=== PATIENT | female | born 1935 | race Asian ===

== ENCOUNTER 2020-08-01 20:59 | Emergency (ER) | payer OTHER, SELFPAY ==
[~2020-08-01] VITALS: Ht 157.5 cm; Wt 81.6 kg
[2020-08-01 21:42] VITALS: BP_SYST 186
--- NOTE | 2020-08-01 21:42 | NUR ---
Placed in room 4 . Placed on rn pacu, blood pressure machine and pulse oximeter. To gown for exam. Side rails up.
--- NOTE | 2020-08-01 21:44 | NUR ---
ER at bedside examining patient.
--- NOTE | 2020-08-01 21:46 | NUR ---
Pt presents to the ER for medical clearance to [facility]. Pt is hyperverbal and yelling to medical staff at [facility]. Pt is cooperative but agitated. Last COVID test done 07/19/20, negative. Denies COVID symptoms.
[2020-08-01 22:11] LABS: BASOPHILS % (AUTO) 0.4 % (0.0-2.0); EOSINOPHILS # (AUTO) 0.1 K/uL (0.0-0.4); EOSINOPHILS % (AUTO) 1.1 % (0.0-4.0); HEMATOCRIT 41.5 % (36-48); HEMOGLOBIN 13.7 g/dL (12.0-16.0); LYMPHOCYTES # (AUTO) 1.6 K/uL (1.0-5.5); LYMPHOCYTES % (AUTO) 21.7 % (20.5-51.5); MEAN CORPUSCULAR HEMOGLOBIN 33 pg (27-31); MEAN CORPUSCULAR HGB CONC 33 % (32-36); MEAN CORPUSCULAR VOLUME 101 fL (79.0-98.0); MONOCYTES # (AUTO) 0.7 K/uL (0.0-1.0); MONOCYTES % (AUTO) 9.5 % (1.7-9.3); NEUTROPHILS # (AUTO) 4.9 K/uL (1.8-7.7); NEUTROPHILS % (AUTO) 67.3 % (40.0-70.0); PLATELET COUNT (AUTO) 232 K/uL (130-430); RED BLOOD CELL COUNT(AUTO) 4.11 MIL/uL (4.2-6.2); RED CELL DISTRIBUTION WIDTH 13.6 % (9.0-15.0); WHITE BLOOD COUNT (AUTO) 7.2 K/uL (4.8-10.8)
[2020-08-01 22:38] LABS: ANION GAP 8 (5-15); CHLORIDE 106 mmol/L (98-107); CREATININE 0.97 mg/dL (0.55-1.30); GLUCOSE 339 mg/dL (70-99); POTASSIUM 4.4 mmol/L (3.5-5.1); SODIUM SERUM 142 mmol/L (136-145); UREA NITROGEN, BLOOD 29 mg/dL (8-21)
[2020-08-01 22:53] LABS: ALANINE AMINOTRANSFERASE 15 U/L (12-78); ALBUMIN 3.1 g/dL (3.4-4.8); ASPARTATE AMINOTRANSFERASE 6 U/L (10-37); FREE T4 (FREE THYROXINE) 0.9 ng/dl (0.8-1.5); THYROID STIMULATING HORMONE 1.23 uIu/mL (0.36-3.74); TOTAL BILIRUBIN 0.2 mg/dL (0.0-1.0)
[2020-08-01 23:00] LABS: ACETAMINOPHEN < 1 ug/mL (1-30); ALCOHOL, BLOOD < 3 mg/dL (<10)
--- NOTE | 2020-08-01 23:35 | NUR ---
Report given to LUMA Zepeda.
[2020-08-02 00:38] VITALS: BP_SYST 186
--- NOTE | 2020-08-02 00:38 | NUR ---
Patient given written and verbal discharge instructions and verbalizes understanding. ER MD discussed with patient the results and treatment provided. Patient in stable condition. ID arm band removed. Report to jennifer anand given to Shivani GE Patient educated on pain management and to follow up with PMD. Opportunity for questions provided and answered. Medication side effect fact sheet provided.
== END 2020-08-02 00:38 ==
LOC: SED 20:59
DX: R19.7 Diarrhea, unspecified (principal); Z73.6 Limitation of activities due to disability; Z20.828 Contact with and (suspected) exposure to other viral communicable diseases
CPT/HCPCS: 36415; 80053; 81002; 84439; 84443; 85025; 87426; 99285; G0480; G0481; G0482